=== PATIENT | female | born 1985 | race Caucasian/White ===

== ENCOUNTER 2023-11-28 13:23 | Emergency (ER) | payer OTHER, SELFPAY ==
[2023-11-28 13:35] VITALS: BP 171/108
[2023-11-28 13:37] LABS: Glucose - Point of Care 89 mg/dl (70-99)
--- NOTE | 2023-11-28 13:46 | ED.GENMED ---
History of Present Illness
General
Chief Complaint: Visual Problem
Time Seen by Provider: 11/28/23 13:42
Travel History
Have you had any contact with someone who has COVID-19?: No
Do you have any symptoms of coronavirus? Fever > 100 degrees, chills, cough, shortness of breath, sore throat, loss of taste or smell, muscle aches, or headache?: No
History of Present Illness
History of Present Illness:
HPI: The patient has multiple complaints. Last evening, she had abrupt onset sensation of myalgias and cold up into a position shaking. However she reports no fevers. Today she had a general unwell feeling. She thought her lips were blue
at times. She has had vision changes with her vision 'going in and out of it' bilaterally. Had palpitations and felt generally weak. She has had anemia in the past and does have thyroid disease. She had a panic attack about 20 years ago. She
works as a school therapist.
EXAM:
GENERAL: Well appearing in no distress, initial blood pressure noted to be elevated 170/108
HEENT: Moist oral mucosa
CARDIOVASCULAR: No murmurs, normal heart rate and rhythm, No chest wall tenderness
PULMONARY: No respiratory distress, breath sounds are clear and equal
ABDOMEN: Soft with no peritoneal signs, no tenderness
NEUROLOGIC: Excellent strength all extremities, no coordination deficits
PSYCHIATRIC: Appropriate mental status, normal insight and judgement
EXTREMITIES: Nontender, no edema, moves all extremities equally
SKIN: No rash, no lesions
ED COURSE:
1:50 PM: I initially evaluated patient
NUMBER AND COMPLEXITY OF PROBLEMS ADDRESSED AT THE ENCOUNTER
� Chronic conditions affecting care: Migraine, thyroid disease
� Acute Exacerbation and/or Progression of Chronic Illness:
� Differential Diagnosis includes: Anxiety, thyroid disease, electrolyte normality, hypertensive urgency
AMOUNT AND/OR COMPLEXITY OF DATA TO BE REVIEWED AND ANALYZED
� I performed an independent evaluation of and my interpretation is:
EKG: Sinus 99, normal axis, nonspecific ST abnormality
CT:
X-rays:
Laboratory Studies: CBC is unremarkable, chemistries are also unremarkable including troponin, COVID negative, flu negative
Other:
� Review of other/old records: Although she states she has had anemia, her hemoglobin from last May was 15.0
� Clinical information was obtained by an independent historian: None needed
� Prescriptions/Medications Considered but not given:
� Further testing considered but not performed:
RISK OF COMPLICATIONS AND/OR MORBIDITY OR MORTALITY OF PATIENT MANAGEMENT
� Social determinants of health affecting care: Lives at home, works as a school therapist
� Discussion with other providers:
� Escalation of care including admission/observation vs risk of discharge considered: Will give IV fluids and check labs. Initial EKG unremarkable. BP was initially elevated however spontaneously significantly improved. The
patient was given IV fluids. On reassessment at 3:30 PM, she does not feel any different. She questioned seizure however I see no evidence of tongue bite cerna, she never had any urinary incontinence, and there is no report for postictal state.
She is answering questions appropriately. We talked about the possibly of anxiety. Overall, the workup is unremarkable.
Past History
Past History
ED Past Medical History: Hypothyroidism and Other (anemia)
Social History
Tobacco: Non-smoker
Phy Exam
Physical Exam
Physical Exam:
See HPI
Course
Orders/Labs/Results
Orders:
Orders
11/28/23 13:40
Electrocardiogram (*1) Urgent
Reason for Study: Shortness of Breath
EKG- Treatment ONCE
11/28/23 13:47
0.9% Sodium Chloride 1000 ml [Nss] 1,000 ml IV BOLUS
11/28/23 14:02
Basic Metabolic Panel Urgent
COVID-19 Antigen Urgent
Source: Nasal Swab
Complete Blood Count/With Diff Urgent
TSH Reflex To Free T4 Urgent
Troponin I Urgent
Influenza A+B Rapid Molecular Urgent
LAMBERTO Source: Nasal Swab
Specimen Description:
Abnormal Lab Results
11/28/23
14:02
MCH 31.3 H pg
(27.0-31.0)
11/28/23 14:02
11/28/23 14:02
Vital Signs
Initial and Last Documented VS:
Initial Vital Signs
Temp Pulse Resp BP Pulse Ox
97.9 F 115 18 171/108 93
11/28/23 13:35 11/28/23 13:35 11/28/23 13:35 11/28/23 13:35 11/28/23 13:35
Last Documented Vital Signs
Temp Pulse Resp BP Pulse Ox
97.9 F 83 12 110/68 99
11/28/23 13:35 11/28/23 14:04 11/28/23 14:04 11/28/23 14:04 11/28/23 13:53
*Critical Care Note
Total Time (30-74mins, 75-104mins- exclusive of procedures): Not Applicable
ED Attending Note
-
Portions of this chart may have been created with voice recognition software.� Occasional wrong word or��sound alike� substitutions may have occurred due to the inherent limitations of voice recognition software.
Discharge Plan
Departure
Prescriptions:
No Action
benzonatate 100 MG capsule
100 mg PO TIDPRN PRN (Reason: cough) Qty: 14 0RF
fexofenadine-pseudoephedrine [Amaris-D 12 Hour] 1 EACH tablet extended release 12 hr
1 ea PO BID Qty: 14 0RF
albuterol sulfate 90 mcg/actuation aero powdr breath act w/sensor
1 inh inhalation Q6H PRN (Reason: shortness of breath or wheezing) Qty: 1 0RF
amoxicillin-pot clavulanate 875-125 mg tablet
1 tab PO BID Qty: 20 0RF
sucralfate [Carafate] 100 mg/mL suspension
10 ml PO QID Qty: 400 0RF
Referrals:
Sandhya Gutierrez, DORMITORY COUNSELOR [Family Provider] -
Interventions
Interventions:
*Risk Screen - Suicide Last Done: 11/28/23 13:46
*General Assessment Last Done: 11/28/23 13:47
*Neglect/Abuse Screening Last Done: 11/28/23 13:46
ED- Fall Risk Assessment Last Done: 11/28/23 13:46
*ED COVID-19 Vaccine History Last Done: 11/28/23 13:46
ED- Cardiac Assessment Last Done: 11/28/23 13:53
ED-EENT Assessment Last Done: 11/28/23 13:53
ED- Neurological Assessment Last Done: 11/28/23 13:53
ED- Pulmonary Assessment Last Done: 11/28/23 13:53
[2023-11-28 13:47] VITALS: BMI 30.3
[2023-11-28 14:04] VITALS: BP 110/68
[2023-11-28] MEDS: NSS 1000 IV (14:06)
[2023-11-28 14:15] LABS: % Basophils 0.4 % (0-2); % Eosinophils 1.8 % (0-6); % Immature Granulocytes 0.3 % (0-0.5); % Lymphocytes 24.1 % (20.5-51.1); % Monocytes 5.7 % (1.7-9.3); % Neutrophils 67.7 % (42.2-75.2); Absolute Eosinophils 0.1 10^3/uL (0-0.7); Absolute Lymphocytes 1.9 10^3/uL (1.2-3.4); Absolute Monocytes 0.5 10^3/uL (0.1-0.6); Absolute Neutrophils 5.3 10^3/uL (1.4-6.5); Hematocrit 42.5 % (37.0-47.0); Hemoglobin 14.7 g/dL (12.0-16.0); Mean Corp Hgb Conc. 34.6 g/dL (33.0-37.0); Mean Corpuscular Hgb 31.3 pg (27.0-31.0); Mean Corpuscular Volume 90.4 fL (81.0-99.0); Mean Platelet Volume 9.8 fL (7.4-10.4); Nucleated Red Blood Cells % 0 %; Platelet Count 196 10^3/uL (130-400); Red Cell Dist. Width 13.1 % (11.5-14.5); White Blood Cell Count 7.8 10^3/uL (4.8-10.8)
[2023-11-28 14:29] LABS: Blood Urea Nitrogen 12 mg/dl (7-17); Calcium 9.4 mg/dl (8.4-10.2); Carbon Dioxide 28 mmol/L (22-30); Chloride 103 mmol/L (98-107); Estimated Creatinine Clearance 112 ml/min; Glucose 89 mg/dl (70-99); Potassium 3.7 mmol/L (3.5-5.1); Sodium 138 mmol/L (135-145); eGFR > 60.00
[2023-11-28 14:30] LABS: COVID-19 Antigen Negative (Negative)
[2023-11-28 14:40] LABS: Troponin I < 0.012 ng/ml
[2023-11-28 15:15] LABS: TSH Reflex To Free T4 1.63 uIU/ml (0.47-4.68)
[2023-11-28 15:41] VITALS: BP 99/70
== END 2023-11-28 16:12 | disposition home or self-care (01) ==
LOC: EMR 13:23
PROVIDERS: EMERGENCY PHYSICIAN Emergency Medicine; FAMILY PHYSICIAN Nurse Practitioner Adult Health
DX: R53.1 Weakness (principal); Z11.52 Encounter for screening for COVID-19
CPT/HCPCS: 99284; 96360; 80048; 82962; 84443; 84484; 85025; 87502; 87811; 93005

== ENCOUNTER 2023-12-29 10:58 | Emergency (ER) | payer OTHER, SELFPAY ==
[2023-12-29 11:22] VITALS: BP 118/84
--- NOTE | 2023-12-29 11:57 | ED.GENMED ---
History of Present Illness
General
Chief Complaint: Musculo-Skeletal Complaint
Source: patient
Time Seen by Provider: 12/29/23 11:41
Travel History
Have you had any contact with someone who has COVID-19?: No
Do you have any symptoms of coronavirus? Fever > 100 degrees, chills, cough, shortness of breath, sore throat, loss of taste or smell, muscle aches, or headache?: No
History of Present Illness
History of Present Illness:
38-year-old female presenting to the emergency department for evaluation after she has been dealing with varying degrees of pain, intermittent paresthesia/numbness, and generally feeling unwell that has been ongoing for some time however has been
acutely worse over the last few weeks. Patient is getting worked up by neurology for MS as well as with probation worker for what may be causing her symptoms. She has had blood work done and had an MRI of her head and cervical spine done last week and
is scheduled to have her thoracic and lumbar spine MRI tomorrow. Patient states that she got the results of the MRI on her portal but has yet to see her physicians to discuss these results and she is not sure what the results mean. Patient notes
no new symptoms today but does note she has been a little bit more clammy than usual.
Past History
Past History
ED Past Medical History: Hypothyroidism and Other (anemia)
ED Past Surgical History: Orthopedic
Social History
Tobacco: Non-smoker
Alcohol: None
Drug: None
Personal: Single
Living: alone
Review of Systems
Review of Systems
All Other Systems: ROS reviewed and negative except as documented in HPI and ROS
Phy Exam
Physical Exam
Physical Exam:
GENERAL: Alert , in no apparent distress
EYE: conjunctiva clear
NECK: Supple
ENT: o/p clr, mmm.
CARDIAC: Regular rate and rhythm
LUNGS: Clear breath sounds bilaterally, no acute respiratory distress, no wheezes/rales/rhonchi
NEUROLOGICAL: Alert and oriented, sensation grossly intact to light touch to bilateral upper and lower extremity, moves all extremities and ambulates with steady gait, patellar deep tendon reflexes intact and equal bilaterally. Clock Assembler strength and
upper extremity strength are intact and equal bilaterally.
SKIN: Warm and dry, skin intact.
MUSCULOSKELETAL: well perfused.
PSYCH: Normal and appropriate interaction.
Scores
Heart Failure Risk
Heart Failure Risk Score: Not Applicable
Heart Score for Chest Pain Patients
STEMI patient?: Not applicable
Withdrawal Assessment of Alcohol
Withdrawal Assessment Completed?: Not applicable
Course
Vital Signs
Initial and Last Documented VS:
Initial Vital Signs
Temp Pulse Resp BP Pulse Ox
98.0 F 86 16 118/84 98
12/29/23 11:22 12/29/23 11:22 12/29/23 11:22 12/29/23 11:22 12/29/23 11:22
Last Documented Vital Signs
Temp Pulse Resp BP Pulse Ox
98.0 F 86 16 118/84 98
12/29/23 11:22 12/29/23 11:22 12/29/23 11:22 12/29/23 11:22 12/29/23 11:22
MDM/Problems Addressed
Differential Diagnosis Includes:
Radiculopathy, neuropathy, I do not have concern for an infectious etiology, MS considered however patient's MRI of the brain did not show any lesions consistent with MS diagnosis, thyroid disorder
MDM/Problems Addressed:
38-year-old female presenting to the emergency department for evaluation of acute on chronic radicular/neuropathy symptoms with no clear etiology at this time. She has undergone extensive outpatient workup with MRI imaging and lab work with no
clear etiology identified. Patient is clearly frustrated current lack of answers and feels that her neurologic symptoms are worsening. She also states she had a previous episode of sepsis where she had was admitted and was concerned that with her
clamminess/sweating that she could be septic. I explained to the patient that she is hemodynamically stable and afebrile and that this is a very unlikely diagnosis but I could check labs here to which she declined. I do not feel patient needs
emergent imaging and she has MRI of her T and L-spine scheduled for tomorrow. I offered a steroid taper and muscle relaxant for her pain to which she is in agreement and she will continue following up with her medical team.
*Pulse Oximetry
Patient hypoxic: no
*Critical Care Note
Total Time (30-74mins, 75-104mins- exclusive of procedures): Not Applicable
Data Reviewed
Review of Other/Old Records Reveals: Radiology Studies (MRI of the brain did not show any emergent pathologies. There are low-lying cerebellar tonsils. Cervical spine showed degenerative changes.)
ED Attending Note
-
Portions of this chart may have been created with voice recognition software.� Occasional wrong word or��sound alike� substitutions may have occurred due to the inherent limitations of voice recognition software.
Discharge Plan
Departure
Patient Disposition: Home (Routine Discharge)
Date of Disposition: 12/29/23
Time of Disposition: 11:57
Patient with high blood pressure during this ER visit?: No
Discharge Problem:
Radiculopathy
Instructions: Radiculopathy (DC)
Prescriptions:
New
methylprednisolone [Medrol ([place])] 4 mg tablets,dose pack
4 mg PO DIRECTED Qty: 21 0RF
diazepam [Valium] 5 mg tablet
5 mg PO BID PRN (Reason: muscle spasm) Qty: 8 0RF
No Action
benzonatate 100 MG capsule
100 mg PO TIDPRN PRN (Reason: cough) Qty: 14 0RF
fexofenadine-pseudoephedrine [Amaris-D 12 Hour] 1 EACH tablet extended release 12 hr
1 ea PO BID Qty: 14 0RF
albuterol sulfate 90 mcg/actuation aero powdr breath act w/sensor
1 inh inhalation Q6H PRN (Reason: shortness of breath or wheezing) Qty: 1 0RF
amoxicillin-pot clavulanate 875-125 mg tablet
1 tab PO BID Qty: 20 0RF
sucralfate [Carafate] 100 mg/mL suspension
10 ml PO QID Qty: 400 0RF
Referrals:
Sandhya Gutierrez SUPERVISOR [employer] [Family Provider] -
Interventions
Interventions:
*Risk Screen - Suicide Last Done: 12/29/23 12:08
*General Assessment Last Done: 12/29/23 12:05
*Neglect/Abuse Screening Last Done: 12/29/23 12:05
ED- Fall Risk Assessment Last Done: 12/29/23 12:05
*ED COVID-19 Vaccine History Last Done: 12/29/23 11:22
*Nursing Disposition Last Done: 12/29/23 12:08
ED-Musculoskeletal Assessment Last Done: 12/29/23 12:00
Discharge Date and Time
Discharge Date/Time: 12/29/23 12:08
== END 2023-12-29 12:08 | disposition home or self-care (01) ==
LOC: EMR 10:58
PROVIDERS: EMERGENCY PHYSICIAN Emergency Medicine; FAMILY PHYSICIAN Nurse Practitioner Adult Health
DX: M54.10 Radiculopathy, site unspecified (principal); G35 Multiple sclerosis; E03.9 Hypothyroidism, unspecified
CPT/HCPCS: 99282